=== PATIENT | male | born 1990 | race Caucasian/White ===

== ENCOUNTER 2017-04-13 17:55 | Emergency (ER) | payer BC ==
[~2017-04-13] VITALS: Ht 177.8 cm; Wt 57.1 kg
[2017-04-13 18:02] VITALS: BP 115/70; PULSE 109; RESP 16; TEMP 97.7; O2SAT 100
[2017-04-13] MEDS ORDERED: BACT800T5 PO (18:53)
--- NOTE | 2017-04-13 18:53 | PD ---
HPI Chief Complaint: Skin Problem Time Seen by Provider: 18:37 Travel History International Travel<30 days: No Contact w/Intl Traveler<30days: No Traveled to known affect area: No History of Present Illness HPI This is a 26-year-old male with a painful swollen lump to the left face 2 days. He denies fever or chills. Symptom severity is mild. No aggravating or alleviating factors. PFSH Past Medical History Cardiovascular Problems: No Diminished Hearing: No Gastrointestinal Disorders: No Genitourinary: No Musculoskeletal: No Neurologic: No Psychiatric: No Reproductive: No Respiratory: No Past Surgical History Other Surgery: No Social History Alcohol Use: No Tobacco Use: Yes (1/2 PACK PER DAY) Substance Use: No Allergies-Medications (Allergen,Severity, Reaction): Coded Allergies: *MDRO Multi-Drug Resistant Organism (Verified Adverse Reaction, Unknown, ) MRSA (face wound) - 06/23/16 Reported Meds & Prescriptions Reported Meds & Active Scripts Active No Active Prescriptions or Reported Medications Review of Systems Except as stated in HPI: all other systems reviewed are Neg General / Constitutional: No: Fever Physical Exam Narrative GENERAL: Alert and well-appearing 26-year-old male. SKIN: Warm and dry. 1 cm tender and indurated raised abscess to the left cheek. Central scab with no drainage. No surrounding cellulitis HEAD: Normocephalic. EYES: No injection or drainage. NECK: Supple Data Data Last Documented VS Vital Signs Date Time Temp Pulse Resp B/P (MAP) Pulse Ox O2 Delivery O2 Flow Rate FiO2 04/13/17 18:02 97.7 109 16 115/70 (85) 100 MDM Medical Decision Making Medical Screen Exam Complete: Yes Emergency Medical Condition: Yes Differential Diagnosis Abscess, cellulitis, folliculitis Narrative Course 26-year-old male here with a early abscess to the left face. The areas indurated without fluctuance. Incision and drainage is not warranted at this time. Patient be put on Bactrim instructed to apply warm compresses to the area. Diagnosis Primary Impression: Abscess Referrals: Primary Care Physician Additional Instructions: Antibiotics as prescribed. Apply warm compresses several times per day. Scripts Sulfamethoxazole-Trimethoprim (Bactrim DS) 800-160 Mg Tab 1 TAB PO BID for Infection, #20 TAB 0 Refills Prov: Shakira Hall 04/13/17 Disposition: 01 DISCHARGE HOME Condition: Stable Shakira Hall Apr 13, 2017 18:53
== END 2017-04-13 19:00 | disposition home or self-care (01) ==
LOC: PHEFT 17:55
DX: L02.01 Cutaneous abscess of face (principal); F17.200 Nicotine dependence, unspecified, uncomplicated
CPT/HCPCS: 99283

== ENCOUNTER 2017-05-04 13:25 | Emergency (ER) | payer BC ==
[~2017-05-04] VITALS: Ht 177.8 cm; Wt 62.0 kg
[~2017-05-04 13:25] MED LIST: BACT800T5 PO
[2017-05-04 13:26] VITALS: BP 127/81; PULSE 110; RESP 14; TEMP 98.3; O2SAT 100
[2017-05-04] MEDS ORDERED: BACT800T5 PO (14:01)
--- NOTE | 2017-05-04 14:02 | PD ---
HPI Chief Complaint: Skin Problem Time Seen by Provider: 13:46 Travel History International Travel<30 days: No Contact w/Intl Traveler<30days: No Traveled to known affect area: No History of Present Illness HPI 26-year-old male presents to emergency room with complaint of an abscess to his left cheek of his face 1 week. Says he has had something like this before and was given Bactrim and it went away. Denies fever, vomiting. Says it started as a pimple and did open up and draining purulent drainage. He denies pain. Denies itching. Has been using triple antibiotic ointment for symptom management. No known aggravating or relieving factors. No known allergies. No primary care provider. Denies significant past medical history. Has no other medical complaints. No other modifying factors or associated signs and symptoms. PFSH Past Medical History Cardiovascular Problems: No Diminished Hearing: No Gastrointestinal Disorders: No Genitourinary: No Musculoskeletal: No Neurologic: No Psychiatric: No Reproductive: No Respiratory: No Past Surgical History Other Surgery: No Social History Alcohol Use: No Tobacco Use: Yes (1/2 PACK PER DAY) Substance Use: No Allergies-Medications (Allergen,Severity, Reaction): Coded Allergies: *MDRO Multi-Drug Resistant Organism (Verified Adverse Reaction, Unknown, ) MRSA (face wound) - 06/23/16 Reported Meds & Prescriptions Reported Meds & Active Scripts Active Bactrim DS (Sulfamethoxazole-Trimethoprim) 800-160 Mg Tab 1 Tab PO BID 10 Days Bactrim DS (Sulfamethoxazole-Trimethoprim) 800-160 Mg Tab 1 Tab PO BID Review of Systems Except as stated in HPI: all other systems reviewed are Neg Physical Exam Narrative GENERAL: Well-nourished, well-developed male patient, in no acute distress; afebrile, nontoxic-appearing SKIN: Warm and dry. Left facial cheek, just left of the corner of the mouth with dried lesion that is without edema, drainage; no fluctuance; minimal surrounding erythema. HEAD: Atraumatic. Normocephalic. EYES: Pupils equal and round. No scleral icterus. No injection or drainage. ENT: Mucosa pink and moist. Airway patent. NECK: Trachea midline. CARDIOVASCULAR: Regular rate. RESPIRATORY: No accessory muscle use. GASTROINTESTINAL: Flat. MUSCULOSKELETAL: No obvious deformities. No clubbing. No cyanosis. No edema. NEUROLOGICAL: Awake and alert. Oriented 3. No obvious cranial nerve deficits. Motor grossly within normal limits. Normal speech. PSYCHIATRIC: Appropriate mood and affect; insight and judgment normal. Data Data Last Documented VS Vital Signs Date Time Temp Pulse Resp B/P (MAP) Pulse Ox O2 Delivery O2 Flow Rate FiO2 05/04/17 14:04 05/04/17 13:50 16 05/04/17 13:26 98.3 110 100 Room Air Orders Orders Ed Discharge Order (05/04/17 14:02) Wound Culture And Gram Stain (05/04/17 14:02) [facility] Medical Decision Making Medical Screen Exam Complete: Yes Emergency Medical Condition: Yes Medical Record Reviewed: Yes Differential Diagnosis Folliculitis, ingrown hair, abscess, MRSA, staph infection Narrative Course 26-year-old male with a lesion of the skin of the face of his left cheek. Apparently he has had this in the past. He says he took Bactrim and it worked for him. Wound culture pending. Bactrim prescribed for home. Instructed patient to follow up with primary care provider. Patient verbalizes understanding and agreement with treatment plan. Patient is medically cleared and stable for discharge. Discussed reasons to return to the emergency department. Patient agrees with treatment plan. The patients vital signs are stable and the patient is stable for outpatient follow-up and treatment. Patient discharged home, stable and in no acute distress. Diagnosis Primary Impression: Lesion of skin of face Referrals: [facility] [employer] Primary Care Physician Patient Instructions: Abscess (ED), Folliculitis (ED), General Instructions Additional Instructions: Complete full course of antibiotics Warm compresses to the affected area Keep area clean and dry Ibuprofen or Tylenol as directed and as needed for pain and inflammation Follow-up with primary care provider Return to emergency department immediately with worsening of symptoms Med/Other Pt SpecificInfo: Prescription(s) given Scripts Sulfamethoxazole-Trimethoprim (Bactrim DS) 800-160 Mg Tab 1 TAB PO BID for Infection for 10 Days, #20 TAB 0 Refills Prov: Saira Richard 05/04/17 Disposition: 01 DISCHARGE HOME Condition: Stable Saira Richard May 04, 2017 14:01
== END 2017-05-04 14:11 | disposition home or self-care (01) ==
LOC: NEPD 13:25
DX: L98.9 Disorder of the skin and subcutaneous tissue, unspecified (principal)
CPT/HCPCS: 86403; 87070; 87205; 99283